=== PATIENT | male | born 1975 | race Caucasian/White ===

== ENCOUNTER 2019-10-04 08:44 | Inpatient (IN) | payer MEDICARE, MEDICAID ==
[2019-10-04] VITALS (11 sets, daily range): BP systolic 81–146; BP diastolic 56–89
[~2019-10-04] VITALS: Ht 167.6 cm; Wt 68.7 kg
[~2019-10-04 08:44] MED LIST: AMOXIL500 M1 OR; ATENOLOL25 MG PO; AUGMENTIN875TAB PO; BACTRIM DS1 TAB OR; BACTRIM1 TAB OR; BUPROPION HCL150 M2 PO; CIPRO500 MG OR; DEPAKOTE250 MG OR; DIVALPROEX SOD500 M2 PO; EFFEXOR XR150 MG OR; KEFLEX500 MG OR; LISINOPRIL10 MG OR; LORTAB5 OR; NAPROSYN375 MG PO; NAPROSYN500 MG PO; OXYBUTYNIN5 MG PO; PAXIL20 MG OR; PAXIL30 MG OR; PRILOSEC OTC20 MG OR; PRILOSEC40 MG PO; RESTORIL15 MG OR; RISPERDAL0.5 MG OR; RISPERDAL0.5 MG PO; SEROQUEL200 MG OR; SEROQUEL400 MG OR; SERTRALINE HCL100 MG PO; TRAZODONE150 MG PO; ULTRAM50 MG OR; WELLBUTRIN150 MG OR; ZOCOR40 MG OR
[2019-10-04 09:51] LABS: IMMATURE GRANULOCYTES 0.3 % (0.0-5.0); MEAN CELL VOLUME 94.4 fL CALC (80.0-100.0); MEAN CORPUSCULAR HGB 31.3 pG CALC (26.0-32.0); MEAN CORPUSCULAR HGB CONC 33.2 g/L CALC (32.0-36.0); NEUT# 8.81 thou/uL (1.82-7.42); RED BLOOD COUNT 5.17 mill/uL (4.70-6.10); RED CELL DISTRI WIDTH 13.4 % (11.5-15.5)
[2019-10-04 09:53] LABS: HEMATOCRIT 48.8 % (39.0-50.0); HEMOGLOBIN 16.2 g/dl (14.0-18.0)
[2019-10-04 09:57] LABS: BARBITURATES NEGATIVE (NEGATIVE); COCAINE NEGATIVE (NEGATIVE); METHADONE NEGATIVE (NEGATIVE); OXCYCODONE NEGATIVE (NEGATIVE); TETRAHYDROCANNABIONOL NEGATIVE (NEGATIVE); TRICYLIC ANTIDEPRESSANTS NEGATIVE (NEGATIVE); URINE BILIRUBIN - DIPSTICK NEGATIVE (NEGATIVE); URINE BLOOD DIPSTICK NEGATIVE (NEGATIVE); URINE COLOR YELLOW; URINE GLUCOSE - DIPSTICK NEGATIVE (NEGATIVE); URINE KETONE NEGATIVE (NEGATIVE); URINE LEUK ESTERASE NEGATIVE (NEGATIVE); URINE NITRITE - DIPSTICK NEGATIVE (Negative); URINE PH 6.5 (4.5-8.0); URINE PROTEIN - DIPSTICK NEGATIVE (NEG-TRACE); URINE SPECIFIC GRAVITY >=1.030; URINE UROBILINOGEN - DIPSTICK 0.2 E.U./dL (0.2)
[2019-10-04 10:10] LABS: ALBUMIN 4.4 g/dL (3.2-5.0); ALKALINE PHOSPHATASE 79 u/l (38-126); ANION GAP 16 (6-22 (CALC)); BILIRUBIN, TOTAL 0.4 mg/dL (0.0-1.4); BUN 13 mg/dL (9-20); BUN/CREATININE RATIO 10 (12-20 (CALC)); CARBON DIOXIDE 24 mmol/l (22-30); CHLORIDE 103 mmol/l (95-108); CPK 419 u/l (52-200); CREATININE 1.3 mg/dL (0.7-1.3); ETHYL ALCOHOL 0 mg/dl (0-30); GFR > 60 ML/MIN (>=60 (CALC)); GFR FOR AFR.AMER. > 60 ML/MIN (>=60 (CALC)); LIPASE 61 u/l (23-300); POTASSIUM 4.9 mmol/l (3.5-5.1); SGOT/AST 22 u/l (17-59); SODIUM 139 mmol/l (137-146); TOTAL PROTEIN 7.5 g/dL (6.3-8.2)
[2019-10-05] VITALS (12 sets, daily range): BP systolic 81–125; BP diastolic 49–74
[2019-10-05 05:37] LABS: HEMATOCRIT 45.1 % (39.0-50.0); HEMOGLOBIN 14.6 g/dl (14.0-18.0); MEAN CELL VOLUME 97.8 fL CALC (80.0-100.0); MEAN CORPUSCULAR HGB 31.7 pG CALC (26.0-32.0); MEAN CORPUSCULAR HGB CONC 32.4 g/L CALC (32.0-36.0); RED BLOOD COUNT 4.61 mill/uL (4.70-6.10); RED CELL DISTRI WIDTH 13.8 % (11.5-15.5)
[2019-10-05 06:00] LABS: ALKALINE PHOSPHATASE 73 u/l (38-126); ANION GAP 12 (6-22 (CALC)); BILIRUBIN, TOTAL 0.5 mg/dL (0.0-1.4); BUN 12 mg/dL (9-20); BUN/CREATININE RATIO 12 (12-20 (CALC)); CARBON DIOXIDE 23 mmol/l (22-30); CHLORIDE 110 mmol/l (95-108); CPK 775 u/l (52-200); GFR > 60 ML/MIN (>=60 (CALC)); GFR FOR AFR.AMER. > 60 ML/MIN (>=60 (CALC)); SGOT/AST 34 u/l (17-59); SODIUM 140 mmol/l (137-146)
[2019-10-05 06:19] LABS: ALBUMIN 3.3 g/dL (3.2-5.0)
[2019-10-05] MEDS ORDERED: MOTRIN400 MG PO (11:33)
[2019-10-05] MEDS ORDERED: ZESTRIL10 M1 PO (11:33)
[2019-10-05] MEDS ORDERED: TRILEPTAL300 M1 PO (11:34)
[2019-10-05] MEDS ORDERED: OLANZAPINE ODT20 MG PO (11:34)
[2019-10-05] MEDS ORDERED: VENTOLIN HFA IN (11:36)
[2019-10-05] MEDS ORDERED: VENLAFAXINE HC150 M1 PO (11:36)
[2019-10-06] VITALS (7 sets, daily range): BP systolic 91–134; BP diastolic 56–75
[2019-10-06 05:24] LABS: HEMATOCRIT 42.6 % (39.0-50.0); HEMOGLOBIN 13.9 g/dl (14.0-18.0); MEAN CORPUSCULAR HGB 31.7 pG CALC (26.0-32.0); MEAN CORPUSCULAR HGB CONC 32.6 g/L CALC (32.0-36.0); RED BLOOD COUNT 4.39 mill/uL (4.70-6.10); RED CELL DISTRI WIDTH 13.6 % (11.5-15.5)
[2019-10-06 05:57] LABS: ANION GAP 11 (6-22 (CALC)); BUN 11 mg/dL (9-20); BUN/CREATININE RATIO 13 (12-20 (CALC)); CARBON DIOXIDE 25 mmol/l (22-30); CHLORIDE 108 mmol/l (95-108); CPK 505 u/l (52-200); CREATININE 0.8 mg/dL (0.7-1.3); GFR > 60 ML/MIN (>=60 (CALC)); GFR FOR AFR.AMER. > 60 ML/MIN (>=60 (CALC)); POTASSIUM 4.6 mmol/l (3.5-5.1); SODIUM 139 mmol/l (137-146)
[2019-10-06] MEDS ORDERED: LISINOPRIL20 MG PO (08:18)
[2019-10-06] MEDS ORDERED: WELLBUTRIN XL300 MG PO (08:18)
== END 2019-10-06 16:40 | DRG 885 ==
LOC: ED 08:44 → ED-I 12:00 → ED 12:28 → ICU 12:29
PROVIDERS: Family Medicine; ADMIT Internal Medicine; ATTEND Internal Medicine
DX: F29 Unspecified psychosis not due to a substance or known physiological condition (principal); M62.82 Rhabdomyolysis; F31.9 Bipolar disorder, unspecified; I10 Essential (primary) hypertension; F17.200 Nicotine dependence, unspecified, uncomplicated
CPT/HCPCS: J2060

== ENCOUNTER 2019-11-25 | Emergency (ER) | payer OTHER, MEDICARE, MEDICAID ==
[~2019-11-25] MED LIST changes: +LISINOPRIL20 MG PO; +MOTRIN400 MG PO; +OLANZAPINE ODT20 MG PO; +TRILEPTAL300 M1 PO; +VENLAFAXINE HC150 M1 PO; +VENTOLIN HFA IN; +WELLBUTRIN XL300 MG PO; +ZESTRIL10 M1 PO
[2019-11-25 10:48] LABS: HEMATOCRIT 43.7 % (39.0-50.0); HEMOGLOBIN 14.9 g/dl (14.0-18.0); IMMATURE GRANULOCYTES 0.5 % (0.0-5.0); MEAN CELL VOLUME 92.2 fL CALC (80.0-100.0); MEAN CORPUSCULAR HGB 31.4 pG CALC (26.0-32.0); MEAN CORPUSCULAR HGB CONC 34.1 g/dL CAL (32.0-36.0); NEUT# 8.09 thou/uL (1.82-7.42); RED BLOOD COUNT 4.74 mill/uL (4.70-6.10); RED CELL DISTRI WIDTH 13.2 % (11.5-15.5)
[2019-11-25 10:48] LABS: URINE BILIRUBIN - DIPSTICK NEGATIVE (NEGATIVE); URINE BLOOD DIPSTICK NEGATIVE (NEGATIVE); URINE COLOR YELLOW; URINE GLUCOSE - DIPSTICK NEGATIVE (NEGATIVE); URINE KETONE NEGATIVE (NEGATIVE); URINE LEUK ESTERASE NEGATIVE (NEGATIVE); URINE NITRITE - DIPSTICK NEGATIVE (Negative); URINE PH 7.5 (4.5-8.0); URINE PROTEIN - DIPSTICK NEGATIVE (NEG-TRACE); URINE SPECIFIC GRAVITY 1.015; URINE UROBILINOGEN - DIPSTICK 0.2 E.U./dL (0.2)
[2019-11-25 10:49] LABS: BARBITURATES NEGATIVE (NEGATIVE); COCAINE NEGATIVE (NEGATIVE); METHADONE NEGATIVE (NEGATIVE); OXCYCODONE NEGATIVE (NEGATIVE); TETRAHYDROCANNABIONOL NEGATIVE (NEGATIVE); TRICYLIC ANTIDEPRESSANTS NEGATIVE (NEGATIVE)
[2019-11-25 11:07] LABS: ALKALINE PHOSPHATASE 71 u/l (38-126); ANION GAP 11 (6-22 (CALC)); BUN 7 mg/dL (9-20); BUN/CREATININE RATIO 9 (12-20 (CALC)); CARBON DIOXIDE 29 mmol/l (22-30); CHLORIDE 102 mmol/l (95-108); CREATININE 0.8 mg/dL (0.7-1.3); ETHYL ALCOHOL 0 mg/dl (0-30); GFR > 60 ML/MIN (>=60 (CALC)); GFR FOR AFR.AMER. > 60 ML/MIN (>=60 (CALC)); POTASSIUM 4.8 mmol/l (3.5-5.1); SGOT/AST 19 u/l (17-59); SODIUM 138 mmol/l (137-146)
[2019-11-25 11:08] LABS: ALBUMIN 4.2 g/dL (3.2-5.0); BILIRUBIN, TOTAL 0.2 mg/dL (0.0-1.4)
== END 2019-11-25 11:40 | disposition designated cancer center or children's hospital (05) | DRG 880 ==
DX: R45.851 Suicidal ideations (principal); F31.9 Bipolar disorder, unspecified; I10 Essential (primary) hypertension; F17.210 Nicotine dependence, cigarettes, uncomplicated; Z91.5 Personal history of self-harm; T43.596A Underdosing of other antipsychotics and neuroleptics, initial encounter; Z91.128 Patient's intentional underdosing of medication regimen for other reason

== ENCOUNTER 2021-02-10 01:51 | Emergency (ER) | payer MEDICARE, MEDICAID ==
[~2021-02-10] VITALS: Ht 167.6 cm; Wt 85.0 kg
[2021-02-10] MEDS ORDERED: ORPHENADRINE100 MG PO (02:52)
[2021-02-10] MEDS ORDERED: TORADOL PO (02:52)
[2021-02-10 03:10] VITALS: BP 151/91
== END 2021-02-10 03:14 | disposition home or self-care (01) ==
LOC: ED 01:51
DX: M79.632 Pain in left forearm (principal); I10 Essential (primary) hypertension; F31.9 Bipolar disorder, unspecified; F17.200 Nicotine dependence, unspecified, uncomplicated

== ENCOUNTER 2021-03-09 09:13 | Emergency (ER) | payer MEDICARE, MEDICAID ==
[~2021-03-09] VITALS: Ht 167.6 cm; Wt 86.4 kg
[~2021-03-09 09:13] MED LIST changes: +ORPHENADRINE100 MG PO; +TORADOL PO
[2021-03-09] MEDS ORDERED: KEFLEX500 MG PO (09:51)
[2021-03-09 09:57] VITALS: BP 149/83
== END 2021-03-09 10:02 | disposition home or self-care (01) ==
LOC: ED 09:13
PROC: 0HQGXZZ Repair Left Hand Skin, External Approach (ICD-10-PCS; principal; 2021-03-09)
DX: S61.412A Laceration without foreign body of left hand, initial encounter (principal); I10 Essential (primary) hypertension; F31.9 Bipolar disorder, unspecified; F17.200 Nicotine dependence, unspecified, uncomplicated; W29.3XXA Contact with powered garden and outdoor hand tools and machinery, initial encounter; Y93.H2 Activity, gardening and landscaping; Y92.007 Garden or yard of unspecified non-institutional (private) residence as the place of occurrence of the external cause

== ENCOUNTER 2023-09-17 10:38 | Emergency (ER) | payer OTHER, MEDICARE, MEDICAID ==
[~2023-09-17] VITALS: Ht 167.6 cm; Wt 81.6 kg
[~2023-09-17 10:38] MED LIST changes: +KEFLEX500 MG PO
[2023-09-17 10:43] VITALS: BP 137/93
[2023-09-17 10:45] VITALS: BP 124/66
[2023-09-17 10:59] LABS: BASO% 0.4 % (0-3); EOS% 0.5 % (0-8); HEMATOCRIT 44.2 % (39.0-50.0); IMMATURE GRANULOCYTES 0.1 % (0.0-5.0); LYMPH% 40.2 % (15-41); MEAN CELL VOLUME 95.3 fL CALC (80.0-100.0); MEAN CORPUSCULAR HGB 32.3 pG CALC (26.0-32.0); MEAN CORPUSCULAR HGB CONC 33.9 g/dL CAL (32.0-36.0); MONO% 5.6 % (2-13); NEUT# 4.05 thou/uL (1.82-7.42); NEUT% 53.2 % (42-76); RED BLOOD COUNT 4.64 mill/uL (4.70-6.10); RED CELL DISTRI WIDTH 12.7 % (11.5-15.5)
[2023-09-17 11:15] VITALS: BP 143/98
[2023-09-17 11:23] LABS: ALBUMIN 4.5 g/dL (3.2-5.0); ALKALINE PHOSPHATASE 69 u/l (38-126); ANION GAP 10 (6-22 (CALC)); BUN 9 mg/dL (9-20); BUN/CREATININE RATIO 9 (12-20 (CALC)); CARBON DIOXIDE 28 mmol/l (22-30); CHLORIDE 104 mmol/l (95-108); CREATININE 0.9 mg/dL (0.7-1.3); GFR FOR AFR.AMER. > 60 ML/MIN (>=60 (CALC)); GFR OTHER RACES > 60 ML/MIN (>=60 (CALC)); POTASSIUM 3.9 mmol/l (3.5-5.1); SGOT/AST 35 u/l (17-59); SODIUM 138 mmol/l (137-146); TOTAL PROTEIN 7.3 g/dL (6.3-8.2)
[2023-09-17 11:38] VITALS: BP 162/92
[2023-09-17 11:45] VITALS: BP 142/87
[2023-09-17 11:56] LABS: BILIRUBIN, TOTAL 0.2 mg/dL (0.2-1.3)
[2023-09-17 12:34] VITALS: BP 142/87
[2023-09-17] MEDS ORDERED: AMOX/K CLAV875 M1 PO (12:38)
== END 2023-09-17 12:40 | disposition home or self-care (01) | DRG 90 ==
LOC: ED 10:38
PROVIDERS: Family Medicine
DX: S06.0X0A Concussion without loss of consciousness, initial encounter (principal); S02.2XXA Fracture of nasal bones, initial encounter for closed fracture; S00.31XA Abrasion of nose, initial encounter; I10 Essential (primary) hypertension; F31.9 Bipolar disorder, unspecified; F17.200 Nicotine dependence, unspecified, uncomplicated; V43.52XA Car driver injured in collision with other type car in traffic accident, initial encounter; Z87.820 Personal history of traumatic brain injury

== ENCOUNTER 2023-09-23 12:54 | Emergency (ER) | payer MEDICARE, MEDICAID ==
[~2023-09-23] VITALS: Ht 167.6 cm; Wt 77.0 kg
[~2023-09-23 12:54] MED LIST changes: +AMOX/K CLAV875 M1 PO
[2023-09-23 13:13] VITALS: BP 162/106
[2023-09-23 13:14] VITALS: BP 157/107
[2023-09-23 13:38] LABS: BASO% 0.3 % (0-3); EOS% 0.6 % (0-8); HEMATOCRIT 48.9 % (39.0-50.0); HEMOGLOBIN 16.8 g/dl (14.0-18.0); IMMATURE GRANULOCYTES 0.2 % (0.0-5.0); LYMPH% 41.8 % (15-41); MEAN CELL VOLUME 94.6 fL CALC (80.0-100.0); MEAN CORPUSCULAR HGB 32.5 pG CALC (26.0-32.0); MEAN CORPUSCULAR HGB CONC 34.4 g/dL CAL (32.0-36.0); NEUT# 4.41 thou/uL (1.82-7.42); NEUT% 50.1 % (42-76); RED BLOOD COUNT 5.17 mill/uL (4.70-6.10); RED CELL DISTRI WIDTH 12.8 % (11.5-15.5)
[2023-09-23 13:52] LABS: ALBUMIN 4.9 g/dL (3.2-5.0); ALKALINE PHOSPHATASE 84 u/l (38-126); BUN 12 mg/dL (9-20); BUN/CREATININE RATIO 13 (12-20 (CALC)); CARBON DIOXIDE 28 mmol/l (22-30); CHLORIDE 101 mmol/l (95-108); CREATININE 0.9 mg/dL (0.7-1.3); ETHYL ALCOHOL 0 mg/dl (0-30); GFR FOR AFR.AMER. > 60 ML/MIN (>=60 (CALC)); GFR OTHER RACES > 60 ML/MIN (>=60 (CALC)); SGOT/AST 31 u/l (17-59); SODIUM 136 mmol/l (137-146); TOTAL PROTEIN 7.8 g/dL (6.3-8.2)
[2023-09-23 14:02] LABS: ANION GAP 12 (6-22 (CALC)); BILIRUBIN, TOTAL 0.4 mg/dL (0.2-1.3); POTASSIUM 4.8 mmol/l (3.5-5.1)
[2023-09-23 23:15] VITALS: BP 139/94
== END 2023-09-23 23:15 ==
LOC: ED 12:54
PROVIDERS: Family Medicine
DX: R45.851 Suicidal ideations (principal); I10 Essential (primary) hypertension; F31.9 Bipolar disorder, unspecified; F41.9 Anxiety disorder, unspecified; F17.200 Nicotine dependence, unspecified, uncomplicated